=== PATIENT | female | born 1995 | race Caucasian/White ===

== ENCOUNTER 2024-03-10 21:04 | Emergency (ER) | payer BC, SELFPAY ==
[2024-03-10 21:09] VITALS: BP 121/93
[2024-03-10 21:32] LABS: % Basophils 0.6 % (0-2); % Immature Granulocytes 0.4 % (0-0.5); % Lymphocytes 36.4 % (20.5-51.1); % Monocytes 7.1 % (1.7-9.3); % Neutrophils 54.5 % (42.2-75.2); Absolute Basophils 0.1 10^3/uL (0-0.2); Absolute Eosinophils 0.1 10^3/uL (0-0.7); Absolute Monocytes 0.6 10^3/uL (0.1-0.6); Absolute Neutrophils 4.4 10^3/uL (1.4-6.5); Hematocrit 41.3 % (37.0-47.0); Hemoglobin 14.2 g/dL (12.0-16.0); Mean Corp Hgb Conc. 34.4 g/dL (33.0-37.0); Mean Corpuscular Hgb 30.4 pg (27.0-31.0); Mean Corpuscular Volume 88.4 fL (81.0-99.0); Nucleated Red Blood Cells % 0 %; Platelet Count 379 10^3/uL (130-400); Red Blood Cell Count 4.67 10^6/uL (4.20-5.40); White Blood Cell Count 8.2 10^3/uL (4.8-10.8)
[2024-03-10 21:47] LABS: HCG, Serum Qualitative Screen Negative
[2024-03-10 21:50] LABS: ALT (SGPT) 19 U/L (0-35); AST (SGOT) 23 U/L (14-36); Albumin 5.1 g/dl (3.5-5.0); Alkaline Phosphatase 68 U/L (38-126); Blood Urea Nitrogen 17 mg/dl (7-17); Calcium 10.9 mg/dl (8.4-10.2); Carbon Dioxide 26 mmol/L (22-30); Chloride 99 mmol/L (98-107); Glucose 97 mg/dl (70-99); Potassium 4.4 mmol/L (3.5-5.1); Sodium 137 mmol/L (135-145); Total Bilirubin 0.6 mg/dl (0.2-1.3); Total Protein 8.2 g/dl (6.3-8.2); eGFR > 60.00
--- NOTE | 2024-03-10 23:42 | ED.GENMED ---
History of Present Illness
General
Chief Complaint: Fainting/Passed Out
Time Seen by Provider: 03/10/24 23:42
Travel History
Have you had any contact with someone who has COVID-19?: No
Do you have any symptoms of coronavirus? Fever > 100 degrees, chills, cough, shortness of breath, sore throat, loss of taste or smell, muscle aches, or headache?: No
History of Present Illness
History of Present Illness:
HPI: About a week ago while walking, the patient passed out. 2 days ago, the patient passed out again while at work and then placed herself on the monitor and states that the rates would go as high as 130s when she would get up and move around.
She describes somewhat of a 'brain fog'. She has never had a cardiac evaluation. Of note, her mother had thyroid disease around the same age.
EXAM:
GENERAL: Well appearing in no distress
HEENT: Moist oral mucosa
CARDIOVASCULAR: No murmurs, normal heart rate, regular rhythm, No chest wall tenderness
PULMONARY: No respiratory distress, breath sounds are clear and equal
ABDOMEN: Soft with no peritoneal signs, no tenderness
NEUROLOGIC: Excellent strength all extremities, no coordination deficits
PSYCHIATRIC: Appropriate mental status, normal insight and judgement
EXTREMITIES: Nontender, no edema, moves all extremities equally
SKIN: No rash, no lesions
TIME OF INITIAL ENCOUNTER: 12:10 AM
NUMBER AND COMPLEXITY OF PROBLEMS ADDRESSED AT THE ENCOUNTER
� Chronic conditions affecting care: Von Willebrand's, PCOS
� Acute Exacerbation and/or Progression of Chronic Illness: This is an acute problem
� Differential Diagnosis includes: Anxiety, thyroid disease, inappropriate tachycardia, dehydration, electrolyte normality
AMOUNT AND/OR COMPLEXITY OF DATA TO BE REVIEWED AND ANALYZED
� I performed an independent evaluation of and my interpretation is:
EKG: Sinus 61, normal axis, normal intervals, no old to compare
CT:
X-rays:
Laboratory Studies: CBC is unremarkable, mild hypercalcemia noted but otherwise chemistries unremarkable, hCG is negative, TSH normal
Other:
� Review of other/old records: Records show the patient had a sigmoidoscopy in 2016
� Clinical information was obtained by an independent historian: I spoke to mother at bedside
� Prescriptions/Medications Considered but not given:
� Further testing considered but not performed:
RISK OF COMPLICATIONS AND/OR MORBIDITY OR MORTALITY OF PATIENT MANAGEMENT
� Social determinants of health affecting care: Lives at home
� Discussion with other providers:
� Escalation of care including admission/observation vs risk of discharge considered: The patient is currently very well-appearing with an unremarkable ED workup. I did inform her of the slight hypercalcemia. EKG is
unremarkable. She is to follow-up with cardiology. Mother prefers [facility].
Phy Exam
Physical Exam
Physical Exam:
See HPI
Course
Orders/Labs/Results
Orders:
Orders
03/10/24 21:15
EKG [Electrocardiogram (*1)] Urgent
Reason for Study: Syncope
EKG- Treatment ONCE
Test Result ONCE
03/10/24 21:23
Complete Blood Count/With Diff Urgent
Comprehensive Metabolic Panel Urgent
HCG, Serum Qualitative Screen Urgent
TSH Reflex To Free T4 Urgent
Comment: ADD ON
03/11/24 00:14
Add On- LAB Urgent
Tests Added?: tsh reflex fT4
Abnormal Lab Results
03/10/24
21:23
Calcium 10.9 H mg/dl
(8.4-10.2)
Albumin 5.1 H g/dl
(3.5-5.0)
03/10/24 21:23
03/10/24 21:23
Vital Signs
Initial and Last Documented VS:
Initial Vital Signs
Temp Pulse Resp BP Pulse Ox
98.1 F 90 16 121/93 100
03/10/24 21:09 03/10/24 21:09 03/10/24 21:09 03/10/24 21:09 03/10/24 21:09
Last Documented Vital Signs
Temp Pulse Resp BP Pulse Ox
98.1 F 89 18 131/96 100
03/10/24 21:09 03/11/24 00:16 03/11/24 00:16 03/11/24 00:16 03/10/24 21:09
*Critical Care Note
Total Time (30-74mins, 75-104mins- exclusive of procedures): Not Applicable
ED Attending Note
-
Portions of this chart may have been created with voice recognition software.� Occasional wrong word or��sound alike� substitutions may have occurred due to the inherent limitations of voice recognition software.
Discharge Plan
Departure
Patient Disposition: Home (Routine Discharge)
Date of Disposition: 03/11/24
Time of Disposition: 00:17
Patient with high blood pressure during this ER visit?: Yes
Discharge Problem:
Syncope
Instructions: Dizziness, Nonvertigo, (DC), Chest Pain [facility] Follow Up
Referrals:
NONE,* [Family Provider] -
Jarad Gann MD [Active] - Follow up in 2-3 days
Stand Alone Forms: Return to Work
Activity Restrictions/Additional Instructions:
The cause of your symptoms is unclear. Thyroid testing is pending. Mildly elevated calcium level is noted with a calcium of 10.9. EKG is unremarkable. I have given you the contact information for [facility].
Interventions
Interventions:
*Risk Screen - Suicide Last Done: 03/11/24 00:24
*General Assessment Last Done: 03/10/24 21:09
*Neglect/Abuse Screening Last Done: 03/11/24 00:24
ED- Fall Risk Assessment Last Done: 03/11/24 00:10
*ED COVID-19 Vaccine History Last Done: 03/10/24 21:09
*Nursing Disposition Last Done: 03/11/24 00:24
ED- Cardiac Assessment Last Done: 03/11/24 00:10
ED- Neurological Assessment Last Done: 03/11/24 00:10
Discharge Date and Time
Discharge Date/Time: 03/11/24 00:26
Print Language: FAROESE
[2024-03-11 00:16] VITALS: BP 131/96
== END 2024-03-11 00:26 | disposition home or self-care (01) ==
LOC: EMR 21:04
PROVIDERS: EMERGENCY PHYSICIAN Emergency Medicine
DX: R55 Syncope and collapse (principal); R03.0 Elevated blood-pressure reading, without diagnosis of hypertension
CPT/HCPCS: 99284; 80053; 84443; 84703; 85025; 93005

== ENCOUNTER 2024-08-16 20:57 | Emergency (ER) | payer BC, SELFPAY ==
[2024-08-16 20:59] VITALS: BP 135/82
[2024-08-16 21:19] VITALS: BMI 26.3
[2024-08-16 21:34] LABS: Urine Albumin Trace (Neg - Trace); Urine Bilirubin Negative (Negative); Urine Character Clear (Clear); Urine Color Yellow; Urine Glucose Negative (Negative); Urine Ketone Negative (Negative); Urine Leukocyte 1+ (Negative); Urine Nitrite Negative (Negative); Urine Occult Blood 3+ (Negative); Urine Specific Gravity 1.025 (<1.030); Urine Urobilinogen Negative (Neg - 1+)
[2024-08-16 21:37] LABS: Hematocrit 36.5 % (37.0-47.0); Hemoglobin 12.4 g/dL (12.0-16.0); Mean Corpuscular Hgb 29.8 pg (27.0-31.0); Mean Corpuscular Volume 87.7 fL (81.0-99.0); Mean Platelet Volume 10.1 fL (7.4-10.4); Platelet Count 337 10^3/uL (130-400); Red Blood Cell Count 4.16 10^6/uL (4.20-5.40); Red Cell Dist. Width 12.9 % (11.5-14.5); White Blood Cell Count 9.7 10^3/uL (4.8-10.8)
[2024-08-16 21:41] LABS: Urine Mucus Many
[2024-08-16 21:45] LABS: Urine Bacteria Many (Negative); Urine Red Blood Cell 0-2 /HPF (0-2)
--- NOTE | 2024-08-16 21:48 | ED.GENMED ---
History of Present Illness
General
Chief Complaint: Abdominal Pain
Source: patient
Time Seen by Provider: 08/16/24 21:31
History of Present Illness
History of Present Illness:
29-year-old female presents emergency room complaining of abdominal pain. Pain located in the suprapubic region. Started fairly abruptly earlier this morning. Pain described as crampy. She does have some mild vaginal bleeding. Her menstrual
periods are irregular but she believes her last menstrual period was early July. She has never been . She denies any previous pelvic or abdominal operations. Patient states that she did have a abnormal Pap smear and is scheduled for
colposcopy tomorrow.
Phy Exam
Physical Exam
Physical Exam:
General: Awake, Alert, Oriented X3. No acute distress.
Vitals: unremarkable
Head: Atraumatic
Eyes: Pupils equal, EOMI
Throat: Airway intact, no exudates
Neck: Trachea midline
Lungs: Clear and equal b/l
Heart: Regular rate, no murmurs
Abd: Soft, Nontender, No pulsatile mass
Back: No CVA tenderness to percussion
Neuro: Nonfocal
Skin: Warm, dry, no rash
Extremities: pulses equal b/l, no edema
Course
Orders/Labs/Results
Orders:
Orders
08/16/24 21:09
Test Result ONCE
08/16/24 21:17
Type+Screen Urgent
Complete Blood Count/With Diff Urgent
Comprehensive Metabolic Panel Urgent
HCG, Serum Qualitative Screen Urgent
Lipase Urgent
Urinalysis Reflex To Culture Urgent
Date Specimen was Collected: 08/16/24
Time Specimen was Collected: 21:09
Urine Microscopic Reflex Cult Urgent
Urine Culture Urgent
CLEO Source: U
Specimen Description:
Date Specimen was Collected: 08/16/24
Time Specimen was Collected: 21:09
08/16/24 21:44
0.9% Sodium Chloride 1000 ml [Nss] 1,000 ml IV BOLUS
Ketorolac [Toradol] 15 mg IV NOW STA
US Pelvis W Transvag Combined Urgent
Comment:
Reason For Exam: pelvic pain
08/16/24 23:41
ABO2 Urgent
BBK Wristband Number:
Associate notified that ABO2 has been ordered: [id number]
Date: 08/16/24
Time: 21:29
Gaming Investigator ID: [id number]
Abnormal Lab Results
08/16/24
21:17
RBC 4.16 L 10^6/uL
(4.20-5.40)
Hct 36.5 L %
(37.0-47.0)
Absolute Lymphs (auto) 4.6 H 10^3/uL
(1.2-3.4)
Absolute Monos (auto) 0.7 H 10^3/uL
(0.1-0.6)
Neutrophils % 41.4 L %
(42.2-75.2)
Glucose 120 H mg/dl
(70-99)
Ur Occult Blood Reflex 3+ A
(Negative)
Leukocyte Esterase Rfl 1+ A
(Negative)
Urine WBC (Reflex) 11-15 A /HPF
(0-5)
Urine Bacteria (Reflex) Many A
(Negative)
08/16/24 21:17
08/16/24 21:17
Vital Signs
Initial and Last Documented VS:
Initial Vital Signs
Temp Pulse Resp BP Pulse Ox
97.4 F 104 22 135/82 99
08/16/24 20:59 08/16/24 20:59 08/16/24 20:59 08/16/24 20:59 08/16/24 20:59
Last Documented Vital Signs
Temp Pulse Resp BP Pulse Ox
97.4 F 60 18 99/58 99
08/16/24 20:59 08/17/24 00:17 08/16/24 22:12 08/17/24 00:17 08/17/24 00:21
MDM/Problems Addressed
Differential Diagnosis Includes:
Ovarian torsion, ovarian cyst, ruptured ovarian cyst, hemorrhagic ovarian cyst, ectopic
MDM/Problems Addressed:
Patient has a negative test. Her abdominal exam should suprapubic tenderness but no tenderness right lower quadrant. Ultrasound showed good flow to both ovaries and some free fluid in the pelvis. At the time of reevaluation the patient
has no pain whatsoever. Her symptoms are completely improved. Suspect the patient has a ruptured ovarian cyst which does not require any specific treatment other than NSAIDs. Patient stable for discharge home. Follow-up with [facility]. She is
scheduled for colposcopy tomorrow.
*Critical Care Note
Total Time (30-74mins, 75-104mins- exclusive of procedures): Not Applicable
ED Attending Note
-
Portions of this chart may have been created with voice recognition software.� Occasional wrong word or��sound alike� substitutions may have occurred due to the inherent limitations of voice recognition software.
Discharge Plan
Departure
Patient Disposition: Home (Routine Discharge)
Date of Disposition: 08/16/24
Time of Disposition: 23:56
Patient with high blood pressure during this ER visit?: No
Condition: Good
Discharge Problem:
Acute pelvic pain, Ruptured ovarian cyst
Instructions: Ovarian Cyst (DC), Abdominal Pain
Referrals:
Siri Ross PA [Family Provider] -
Activity Restrictions/Additional Instructions:
Follow up with your pharmacy informatics specialist.
Interventions
Interventions:
*Risk Screen - Suicide Last Done: 08/16/24 20:59
*General Assessment Last Done: 08/17/24 00:21
*Neglect/Abuse Screening Last Done: 08/16/24 20:59
ED- Fall Risk Assessment Last Done: 08/16/24 21:23
*ED COVID-19 Vaccine History Last Done: 08/16/24 20:59
*Nursing Disposition Last Done: 08/17/24 00:21
RV-Wpmtcz-Yuqlsgjqnb Assessment Last Done: 08/16/24 21:23
Discharge Date and Time
Discharge Date/Time: 08/17/24 00:25
Print Language: KOREAN
[2024-08-16 21:50] LABS: % Basophils 0.6 % (0-2); % Immature Granulocytes 0.3 % (0-0.5); % Lymphocytes 47.6 % (20.5-51.1); % Monocytes 7.1 % (1.7-9.3); % Neutrophils 41.4 % (42.2-75.2); Absolute Basophils 0.1 10^3/uL (0-0.2); Absolute Eosinophils 0.3 10^3/uL (0-0.7); Absolute Lymphocytes 4.6 10^3/uL (1.2-3.4); Absolute Monocytes 0.7 10^3/uL (0.1-0.6); Nucleated Red Blood Cells % 0 %
[2024-08-16 21:52] LABS: HCG, Serum Qualitative Screen Negative
[2024-08-16 21:55] LABS: ALT (SGPT) 17 U/L (0-35); AST (SGOT) 19 U/L (14-36); Albumin 4.3 g/dl (3.5-5.0); Alkaline Phosphatase 55 U/L (38-126); Blood Urea Nitrogen 16 mg/dl (7-17); Calcium 9.4 mg/dl (8.4-10.2); Carbon Dioxide 26 mmol/L (22-30); Chloride 103 mmol/L (98-107); Estimated Creatinine Clearance 95 ml/min; Glucose 120 mg/dl (70-99); Lipase 143 U/L (23-300); Potassium 3.6 mmol/L (3.5-5.1); Sodium 139 mmol/L (135-145); Total Bilirubin 0.2 mg/dl (0.2-1.3); Total Protein 6.7 g/dl (6.3-8.2); eGFR > 60.00
[2024-08-16] MEDS: NSS 1000 IV (22:10)
[2024-08-16] MEDS: TORADOL 15 MG IV (22:10)
[2024-08-16 22:12] VITALS: BP 101/66
[2024-08-16 23:19] VITALS: BP 102/64
[2024-08-17 00:17] VITALS: BP 99/58
== END 2024-08-17 00:25 | disposition home or self-care (01) ==
LOC: EMR 20:57
PROVIDERS: EMERGENCY PHYSICIAN Emergency Medicine; FAMILY PHYSICIAN Physician Assistant Medical
DX: N83.291 Other ovarian cyst, right side (principal); R10.2 Pelvic and perineal pain
CPT/HCPCS: 99284; 96374; 96361; 76830; 76856; 80053; 81003; 81015; 83690; 84703; 85025; 86850; 86900; 86901; 87086

== ENCOUNTER → 2024-09-06 06:23 | Day surgery (SDC) | payer BC, SELFPAY | LOC: GI 06:23 | PROVIDERS: ATTENDING PHYSICIAN Internal Medicine | DX: Z12.11 Encounter for screening for malignant neoplasm of colon (principal); R10.30 Lower abdominal pain, unspecified; R63.4 Abnormal weight loss; K62.89 Other specified diseases of anus and rectum; R12 Heartburn; K44.9 Diaphragmatic hernia without obstruction or gangrene; K29.50 Unspecified chronic gastritis without bleeding; Z86.0100 Personal history of colon polyps, unspecified | CPT/HCPCS: 43239; G0105; 88305; 88342 ==

== ENCOUNTER 2024-12-21 13:59 | Emergency (ER) | payer BC, SELFPAY ==
[2024-12-21 14:09] VITALS: BP 123/82
--- NOTE | 2024-12-21 14:13 | ED.GENMED ---
ED Provider Triage
<Mitch Corey PA-C - Last Filed: 12/21/24 14:15>
-
Patient seen by provider in Triage?: Seen in Triage
Attestation: A medical screening examination has been initiated by a qualified medical provider. Based on the assessment performed at this time, it has been determined that an emergent medical condition may exist and the patient has been informed
that further medical evaluation and possible additional diagnostic testing may be needed.
HPI: 29-year-old female presenting to the ER for evaluation of swollen lymph nodes within her neck and left axillary area. Seen by primary care provider on Thursday was tested for COVID, flu, RSV and mono with these test coming back negative. No
fevers but patient does endorse chills. No known sick contacts. No other concerns. Labs and strep testing ordered.
GENERAL: Alert , in no apparent distress
EYE: No visual abnormalities.
NECK: Trachea midline
ENT: No visible abnormalities.
LUNGS: No acute respiratory distress
NEUROLOGICAL: Alert and oriented
SKIN: Skin intact. No visible changes.
MUSCULOSKELETAL: Moving extremities normally
PSYCH: Normal and appropriate interaction.
This is a medical evaluation conducted in person to initiate diagnostic evaluation and provide initial therapeutics. Please see further documentation by the treating clinician.
History of Present Illness
<Mitch Corey PA-C - Last Filed: 12/21/24 14:15>
General
Chief Complaint: Fatigue
Time Seen by Provider: 12/21/24 20:17
<YANCI Benton - Last Filed: 12/21/24 21:03>
General
Source: patient
Exam Limitations: none
History of Present Illness
History of Present Illness:
This is a 29 year old female that comes in with c/o neck and head pain. States that over a month ago she started with what she thought was an ear infection. States that she went to the PCP and was told that it was TMJ. States that she then felt this
lump in the back of her head and she was told that it was a lymph node. States that she was put on Augmentin as she was told that she may have an inner ear infection. States that she was also given Steroid taper. States that this was last Thursday
or Thursday. States that it has been a week and she has no relief. States that she was tested for the flu and it was negative. State that she called the PCP yesterday. States that now she feels that her neck is swollen and stiff. States that she
has pressure in her head and that there is a rubber band around her head. States that the pain goes up the back of her neck into her head and into the temporal area and across her forehead. State that she is very fatigued and dizzy and has brain
fog. States that she is cold and hot an at night wakes up in a sweat. States that she gets SOB with activity. States that she has had abd discomfort and nausea and alternated with diarrhea and constipation. Denies any fever, chills, chest pain,
vomiting, urinary burning.
Past History
<YANCI Benton - Last Filed: 12/21/24 21:03>
Past History
ED Past Medical History: Fibromyalgia (Questionable) and Other (PCOS, Von Willenbrands disease. POTS questionable, Hiatal hernia)
ED Past Surgical History: Tonsilectomy
Social History
Tobacco: Non-smoker
Alcohol: Occasional
Personal: Single
Living: with family
Employment: Employed
Review of Systems
<YANCI Benton - Last Filed: 12/21/24 21:03>
Review of Systems
All Other Systems: ROS reviewed and negative except as documented in HPI and ROS
Constitutional: Reports fatigue and night sweats; Denies fever or chills
EENT: Reports no symptoms
Respiratory: Reports trouble breathing (with activity); Denies cough
Cardiac: Reports no symptoms; Denies chest pain
ABD/GI: Reports abdominal pain, nausea and diarrhea (alternated with constipation); Denies vomiting
: Reports no symptoms; Denies dysuria, frequency or urgency
Musculoskeletal: Reports no symptoms
Skin: Reports no symptoms
Neurological: Reports headache and other (Lightheaded)
Psychiatric: Reports no symptoms
Phy Exam
<YANCI Benton - Last Filed: 12/21/24 21:03>
General Physical Exam
General Presentation: well appearing and no apparent distress
General age: appears stated age
General Skin: warm and dry
General Habitus: normal
General Mental: alert
General Hydration: appears well hydrated
ENT Exam
ENT Exam: TM's normal, pharynx normal and neck supple
Eye Exam
Eye Exam: EOMI
Cardiovascular Exam
Cardiovascular Exam: regular rate/rhythm, no edema, no murmur and normal peripheral pulses
Pulmonary Exam
Pulmonary Exam: lungs clear, no respiratory distress, no rales, chest non tender, no crackles, no rhonchi, no wheezing and no cough
Gastrointestinal Exam
Gastrointestinal Exam: normal bowel sounds, non tender, soft, no organomegaly, no pulsatile mass and non distended
Musculoskeletal Exam
Musculoskeletal Exam: full ROM and no edema
Skin Exam
Skin Exam: normal color, warm/dry, no rash and no petechia
Psychiatric Exam
Psychiatric Exam: normal mood/affect
Course
<Mitch Corey PA-C - Last Filed: 12/21/24 14:15>
Orders/Labs/Results
Orders:
Orders
12/21/24 14:14
Test Result ONCE
12/21/24 14:18
C-Reactive Protein Urgent
Comment: ADD ON
Complete Blood Count/With Diff Urgent
Comprehensive Metabolic Panel Urgent
Erythrocyte Sed Rate Urgent
Comment: ADD ON
HCG, Serum Qualitative Screen Urgent
Lyme Progressive Urgent
Comment: ADD ON
Monotest Urgent
TSH Reflex To Free T4 Urgent
Comment: ADD ON
12/21/24 20:29
0.9% Sodium Chloride 1000 ml [Nss] 1,000 ml IV BOLUS
Acetaminophen [Tylenol] 1,000 mg PO NOW STA
12/21/24 20:38
Add On- LAB Urgent
Tests Added?: Sed rate, CRP
12/21/24 20:46
Add On- LAB Urgent
Tests Added?: Epstine guallpa antigen antibody, TSH with reflex free T4
12/21/24 20:51
Add On- LAB Urgent
Tests Added?: Lyme progressive
Abnormal Lab Results
12/21/24
14:18
Absolute Monos (auto) 0.8 H 10^3/uL
(0.1-0.6)
Glucose 112 H mg/dl
(70-99)
Total Bilirubin < 0.1 L mg/dl
(0.2-1.3)
12/21/24 14:18
12/21/24 14:18
Vital Signs
Initial and Last Documented VS:
Initial Vital Signs
Temp Pulse Resp BP Pulse Ox
98.2 F 84 16 123/82 100
12/21/24 14:09 12/21/24 14:09 12/21/24 14:09 12/21/24 14:09 12/21/24 14:09
Last Documented Vital Signs
Temp Pulse Resp BP Pulse Ox
98.7 F 69 18 122/68 99
12/21/24 19:09 12/21/24 21:32 12/21/24 21:32 12/21/24 21:32 12/21/24 21:32
<YANCI Benton - Last Filed: 12/21/24 21:03>
Orders/Labs/Results
Orders:
Orders
12/21/24 14:14
Test Result ONCE
12/21/24 14:18
C-Reactive Protein Urgent
Comment: ADD ON
Complete Blood Count/With Diff Urgent
Comprehensive Metabolic Panel Urgent
Erythrocyte Sed Rate Urgent
Comment: ADD ON
HCG, Serum Qualitative Screen Urgent
Lyme Progressive Urgent
Comment: ADD ON
Monotest Urgent
TSH Reflex To Free T4 Urgent
Comment: ADD ON
12/21/24 20:29
0.9% Sodium Chloride 1000 ml [Nss] 1,000 ml IV BOLUS
Acetaminophen [Tylenol] 1,000 mg PO NOW STA
12/21/24 20:38
Add On- LAB Urgent
Tests Added?: Sed rate, CRP
12/21/24 20:46
Add On- LAB Urgent
Tests Added?: Epstine guallpa antigen antibody, TSH with reflex free T4
12/21/24 20:51
Add On- LAB Urgent
Tests Added?: Lyme progressive
Abnormal Lab Results
12/21/24
14:18
Absolute Monos (auto) 0.8 H 10^3/uL
(0.1-0.6)
Glucose 112 H mg/dl
(70-99)
Total Bilirubin < 0.1 L mg/dl
(0.2-1.3)
12/21/24 14:18
12/21/24 14:18
Hyperglycemia, Total franoc Low, HCG negative, [place] negative.
Vital Signs
Initial and Last Documented VS:
Initial Vital Signs
Temp Pulse Resp BP Pulse Ox
98.2 F 84 16 123/82 100
12/21/24 14:09 12/21/24 14:09 12/21/24 14:09 12/21/24 14:09 12/21/24 14:09
Last Documented Vital Signs
Temp Pulse Resp BP Pulse Ox
98.7 F 69 18 122/68 99
12/21/24 19:09 12/21/24 21:32 12/21/24 21:32 12/21/24 21:32 12/21/24 21:32
<Eric Porter, DO - Last Filed: 12/21/24 23:33>
Orders/Labs/Results
Orders:
Orders
12/21/24 14:14
Test Result ONCE
12/21/24 14:18
C-Reactive Protein Urgent
Comment: ADD ON
Complete Blood Count/With Diff Urgent
Comprehensive Metabolic Panel Urgent
Erythrocyte Sed Rate Urgent
Comment: ADD ON
HCG, Serum Qualitative Screen Urgent
Lyme Progressive Urgent
Comment: ADD ON
Monotest Urgent
TSH Reflex To Free T4 Urgent
Comment: ADD ON
12/21/24 20:29
0.9% Sodium Chloride 1000 ml [Nss] 1,000 ml IV BOLUS
Acetaminophen [Tylenol] 1,000 mg PO NOW STA
12/21/24 20:38
Add On- LAB Urgent
Tests Added?: Sed rate, CRP
12/21/24 20:46
Add On- LAB Urgent
Tests Added?: Epstine guallpa antigen antibody, TSH with reflex free T4
12/21/24 20:51
Add On- LAB Urgent
Tests Added?: Lyme progressive
Abnormal Lab Results
12/21/24
14:18
Absolute Monos (auto) 0.8 H 10^3/uL
(0.1-0.6)
Glucose 112 H mg/dl
(70-99)
Total Bilirubin < 0.1 L mg/dl
(0.2-1.3)
12/21/24 14:18
12/21/24 14:18
Vital Signs
Initial and Last Documented VS:
Initial Vital Signs
Temp Pulse Resp BP Pulse Ox
98.2 F 84 16 123/82 100
12/21/24 14:09 12/21/24 14:09 12/21/24 14:09 12/21/24 14:09 12/21/24 14:09
Last Documented Vital Signs
Temp Pulse Resp BP Pulse Ox
98.7 F 69 18 122/68 99
12/21/24 19:09 12/21/24 21:32 12/21/24 21:32 12/21/24 21:32 12/21/24 21:32
<YANCI Benton - Last Filed: 12/21/24 21:03>
MDM/Problems Addressed
Differential Diagnosis Includes:
Fibromyalgia, Complicated migraines.
MDM/Problems Addressed:
This is a 29 year old female that comes in with c/o a headache that comes up the back of her neck into her head around to her Temporal area and across the forehead. States that this all started about a month ago. Patient has been treated with
Augmentin and steroid taper.
Will check labs and get CT of head.
Patient was seen by Dr. Porter. Will add on further blood work and discharge patient.
Chronic conditions affecting care:
Fibromyalgia
Acute Exacerbation and/or Progression of Chronic Illness:
Fibromyalgia
<YANCI Benton - Last Filed: 12/21/24 21:03>
*Pulse Oximetry
Patient hypoxic: no
*EKG
Interpreted by ED Provider?: NA
Rate: EKG- N/A
*Senior Production Manager Interpretation
Rate: Senior Production Manager- N/A
*Critical Care Note
Total Time (30-74mins, 75-104mins- exclusive of procedures): Not Applicable
ED Attending Note
<Mitch Corey PA-C - Last Filed: 12/21/24 14:15>
-
Portions of this chart may have been created with voice recognition software.� Occasional wrong word or��sound alike� substitutions may have occurred due to the inherent limitations of voice recognition software.
<Eric Porter DO - Last Filed: 12/21/24 23:33>
ED Attending Note
Patient seen and examined by attending physician: Yes
I performed the substantive portion of visit, reviewed & personally made and approve the management plan that is documented in note by myself or JADIEL.: Yes
ED Attending Note:
30-year-old female with a variety of complaints. Has had sort of a 'brain fog', swollen lymph nodes, fatigue. Has tested negative for mono. Has appoint with hematology [facility] because she may need a minor surgery and she has a history of von
Willebrand's disease. Symptoms have been going on for more than a month. Exam: Question very small anterior cervical chain lymph nodes palpable. Certainly no significant lymphadenopathy. No axillary lymphadenopathy palpated. No meningismus. No
focal motor deficits. Assessment plan: Question whether this was just some sort of viral etiology. Could question Lawanda-Guallpa virus. Will check Lyme, Lawanda-Guallpa, thyroid and discharge for outpatient follow-up
Discharge Plan
Departure
Patient Disposition: Home (Routine Discharge)
Date of Disposition: 12/21/24
Time of Disposition: 20:48
Patient with high blood pressure during this ER visit?: Yes
Condition: Good
Covid-19: Not Applicable
Discharge Problem:
Headache, Fatigue
Instructions: Fatigue (DC), Headaches in adults, BLOOD PRESSURE
Referrals:
Siri Ross PA [Family Provider] - Follow up in 2-3 days
Activity Restrictions/Additional Instructions:
As discussed, your blood work shows that your blood sugar is slightly elevated. However, steroid use may be the cause of this. Please increase your water intake to 8-8oz glasses daily. Follow up with scheduled appointments. Use Tylenol as needed for
headache pain. IF YOU HAVE ANY OTHER CONCERNS PLEASE RETURN TO THE EMERGENCY ROOM.
Interventions
Interventions:
*Risk Screen - Suicide Last Done: 12/21/24 14:09
*General Assessment Last Done: 12/21/24 14:09
*Neglect/Abuse Screening Last Done: 12/21/24 14:09
ED- Fall Risk Assessment Last Done: 12/21/24 21:30
*ED COVID-19 Vaccine History Last Done: 12/21/24 14:09
*Nursing Disposition Last Done: 12/21/24 21:31
Discharge Date and Time
Discharge Date/Time: 12/21/24 21:32
Print Language: HUNGARIAN
[2024-12-21 14:28] LABS: % Basophils 0.4 % (0-2); % Eosinophils 1.1 % (0-6); % Immature Granulocytes 0.2 % (0-0.5); % Lymphocytes 35.3 % (20.5-51.1); % Monocytes 8.4 % (1.7-9.3); % Neutrophils 54.6 % (42.2-75.2); Absolute Eosinophils 0.1 10^3/uL (0-0.7); Absolute Lymphocytes 3.2 10^3/uL (1.2-3.4); Absolute Monocytes 0.8 10^3/uL (0.1-0.6); Absolute Neutrophils 4.9 10^3/uL (1.4-6.5); Hematocrit 37.9 % (37.0-47.0); Hemoglobin 12.6 g/dL (12.0-16.0); Mean Corp Hgb Conc. 33.2 g/dL (33.0-37.0); Mean Corpuscular Hgb 29.8 pg (27.0-31.0); Mean Corpuscular Volume 89.6 fL (81.0-99.0); Mean Platelet Volume 9.8 fL (7.4-10.4); Nucleated Red Blood Cells % 0 %; Platelet Count 343 10^3/uL (130-400); Red Blood Cell Count 4.23 10^6/uL (4.20-5.40); Red Cell Dist. Width 13.3 % (11.5-14.5)
[2024-12-21 14:43] LABS: HCG, Serum Qualitative Screen Negative
[2024-12-21 14:48] LABS: ALT (SGPT) 17 U/L (0-35); AST (SGOT) 15 U/L (14-36); Albumin 4.2 g/dl (3.5-5.0); Alkaline Phosphatase 47 U/L (38-126); Blood Urea Nitrogen 12 mg/dl (7-17); Calcium 8.9 mg/dl (8.4-10.2); Carbon Dioxide 29 mmol/L (22-30); Chloride 100 mmol/L (98-107); Glucose 112 mg/dl (70-99); Potassium 3.6 mmol/L (3.5-5.1); Sodium 138 mmol/L (135-145); Total Bilirubin < 0.1 mg/dl (0.2-1.3); Total Protein 6.6 g/dl (6.3-8.2); eGFR > 60.00
[2024-12-21 15:14] LABS: Monotest Negative (Negative)
[2024-12-21 15:55] VITALS: BP 130/80
[2024-12-21 19:09] VITALS: BP 138/77
[2024-12-21 21:03] LABS: Erythrocyte Sed Rate 9 mm/hour (0-20)
[2024-12-21 21:32] VITALS: BP 122/68
[2024-12-21 22:05] LABS: TSH Reflex To Free T4 2.13 uIU/ml (0.47-4.68)
[2024-12-23 16:47] LABS: Lyme Antibody Screen, EIA Negative (Negative)
== END 2024-12-21 21:32 | disposition home or self-care (01) ==
LOC: EMR 13:59
PROVIDERS: Physician Assistant Medical; EMERGENCY PHYSICIAN Emergency Medicine; FAMILY PHYSICIAN Physician Assistant Medical
DX: R51.9 Headache, unspecified (principal); R53.83 Other fatigue; M79.7 Fibromyalgia
CPT/HCPCS: 99283; 80053; 84443; 84703; 85025; 85652; 86140; 86308; 86618

== ENCOUNTER 2025-02-03 12:55 | Emergency (ER) | payer BC, SELFPAY ==
[2025-02-03 13:05] VITALS: BP 129/70
[2025-02-03 13:56] LABS: % Basophils 0.5 % (0-2); % Eosinophils 0.9 % (0-6); % Immature Granulocytes 0.1 % (0-0.5); % Lymphocytes 29.6 % (20.5-51.1); % Monocytes 9.7 % (1.7-9.3); % Neutrophils 59.2 % (42.2-75.2); Absolute Eosinophils 0.1 10^3/uL (0-0.7); Absolute Lymphocytes 2.3 10^3/uL (1.2-3.4); Absolute Monocytes 0.8 10^3/uL (0.1-0.6); Absolute Neutrophils 4.6 10^3/uL (1.4-6.5); Hematocrit 36.3 % (37.0-47.0); Hemoglobin 12.1 g/dL (12.0-16.0); Mean Corp Hgb Conc. 33.3 g/dL (33.0-37.0); Mean Corpuscular Hgb 29.5 pg (27.0-31.0); Mean Corpuscular Volume 88.5 fL (81.0-99.0); Mean Platelet Volume 10.6 fL (7.4-10.4); Nucleated Red Blood Cells % 0 %; Platelet Count 326 10^3/uL (130-400); Red Cell Dist. Width 13.3 % (11.5-14.5); White Blood Cell Count 7.8 10^3/uL (4.8-10.8)
[2025-02-03 14:04] LABS: APTT 30.5 Sec (23.4-35.0); INR 0.89; PT 12.4 Sec (11.4-14.6)
[2025-02-03 14:13] LABS: ALT (SGPT) 19 U/L (0-35); AST (SGOT) 20 U/L (14-36); Albumin 4.7 g/dl (3.5-5.0); Alkaline Phosphatase 59 U/L (38-126); Blood Urea Nitrogen 15 mg/dl (7-17); Calcium 9.6 mg/dl (8.4-10.2); Carbon Dioxide 26 mmol/L (22-30); Chloride 102 mmol/L (98-107); Glucose 92 mg/dl (70-99); Potassium 3.9 mmol/L (3.5-5.1); Sodium 138 mmol/L (135-145); Total Bilirubin 0.5 mg/dl (0.2-1.3); Total Protein 7.1 g/dl (6.3-8.2); eGFR > 60.00
--- NOTE | 2025-02-03 17:05 | ED.GENMED ---
History of Present Illness
General
Chief Complaint: Rectal Bleeding
Source: patient
Exam Limitations: none
Time Seen by Provider: 02/03/25 16:40
Nursing documentation reviewed up to this point in time: agreed with
History of Present Illness
History of Present Illness:
29-year-old female with history of von Willebrand's disease presents for rectal bleeding. She states she typically has 3 or 4 soft bowel movements a day, she did have 3 soft bowel movements today as usual and then at 10 AM she said she had a bowel
movement that was 'just blood with clots.' She has had no rectal bleeding since. She does have a history of hemorrhoids. She also just got her period.
She denies abdominal pain, fever, N/V
Past History
Past History
ED Past Medical History: Fibromyalgia (Questionable) and Other (PCOS, Von Willenbrands disease. POTS questionable, Hiatal hernia)
ED Past Surgical History: Tonsilectomy
Social History
Tobacco: Non-smoker
Alcohol: Occasional
Personal: Single
Living: with family
Employment: Employed
Review of Systems
Review of Systems
Allergies reviewed?: Yes
All Other Systems: ROS reviewed and negative except as documented in HPI and ROS
Constitutional: Denies fever or fatigue
Respiratory: Denies trouble breathing
Cardiac: Denies chest pain, palpitations or syncope
ABD/GI: Reports bloody stools (x 1 this a.m.); Denies abdominal pain, nausea, vomiting, diarrhea, constipated or anorexia
: Denies dysuria, frequency or difficulty voiding
Musculoskeletal: Reports no symptoms
Skin: Reports no symptoms
Neurological: Reports no symptoms
Phy Exam
Physical Exam
Physical Exam:
GENERAL: No acute distress. A&Ox3.
CONSTITUTIONAL: Afebrile.
EYES: clear, conjunctivae normal
ENMT: moist mucus membranes, Pharynx nl
RESPIRATORY: Regular respirations, nonlabored, lungs clear.
CARDIOVASCULAR: Regular rate and rhythm, no murmurs, no rubs.
GI: Soft, mild RLQ tenderness that started just during this exam. normal BS
Rectal: No stool in rectal vault, gloved finger with pinkish mucus hematest positive. No external hemorrhoids, no significant pain with exam, no palpable masses
MUSCULOSKELETAL: Moves with ease. Well perfused.
SKIN: Warm, dry, pink
PSYCH: Normal mood and affect. Well kept, interactive and appropriate
NEUROLOGIC: Awake, alert and oriented. No focal neurological deficits
Course
Orders/Labs/Results
Orders:
Orders
02/03/25 13:16
Type+Screen Urgent
Complete Blood Count/With Diff Urgent
Comprehensive Metabolic Panel Urgent
PTT Urgent
Prothrombin Time Urgent
Abnormal Lab Results
02/03/25
13:16
RBC 4.10 L 10^6/uL
(4.20-5.40)
Hct 36.3 L %
(37.0-47.0)
MPV 10.6 H fL
(7.4-10.4)
Absolute Monos (auto) 0.8 H 10^3/uL
(0.1-0.6)
Monocytes % 9.7 H %
(1.7-9.3)
02/03/25 13:16
02/03/25 13:16
Vital Signs
Initial and Last Documented VS:
Initial Vital Signs
Temp Pulse Resp BP Pulse Ox
98.7 F 82 16 129/70 100
02/03/25 13:05 02/03/25 13:05 02/03/25 13:05 02/03/25 13:05 02/03/25 13:05
Last Documented Vital Signs
Temp Pulse Resp BP Pulse Ox
98.7 F 79 20 125/84 96
02/03/25 13:05 02/03/25 17:19 02/03/25 17:19 02/03/25 17:19 02/03/25 17:19
MDM/Problems Addressed
MDM/Problems Addressed:
29-year-old female with history of von Willebrand's disease presents for rectal bleeding. She states she typically has 3 or 4 soft bowel movements a day, she did have 3 soft bowel movements today as usual and then at 10 AM she said she had a bowel
movement that was 'just blood with clots.' She has had no rectal bleeding since. She does have a history of hemorrhoids. She also just got her period.
She denies abdominal pain, fever, N/V
Afebrile, NAD
CBC, CMP normal
Rectal exam: No stool in rectal vault, mild pinkish color on gloved finger hematest positive, no palpable masses, no significant pain, no external hemorrhoids noted.
Patient reassured, she knows to come back if her bleeding persists, she she had no abdominal pain until this exam, she has some mild right lower quadrant abdominal pain with deep palpation, she states this just started, she is comfortable observing
and if it is worse she will come back.
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
*Critical Care Note
Total Time (30-74mins, 75-104mins- exclusive of procedures): Not Applicable
ED Attending Note
-
Portions of this chart may have been created with voice recognition software.� Occasional wrong word or��sound alike� substitutions may have occurred due to the inherent limitations of voice recognition software.
Discharge Plan
Departure
Patient Disposition: Home (Routine Discharge)
Date of Disposition: 02/03/25
Time of Disposition: 17:11
Patient with high blood pressure during this ER visit?: No
Condition: Good
Discharge Problem:
Bright red rectal bleeding
Instructions: Hemorrhoids (DC), Bloody Stools, Adult ED, Abdominal Pain
Referrals:
NONE,* [Active] -
Activity Restrictions/Additional Instructions:
As we discussed, I can neither seen nor feel any hemorrhoids.
Since you only had the one episode and your blood work is normal, simply observe over the next couple of days and return if bleeding becomes worse or you feel worse in any way.
Since you just now noted your right side abdominal pain, if it gets worse, you develop nausea/vomiting, fever or worsening pain return here for reevaluation
Interventions
Interventions:
*Risk Screen - Suicide Last Done: 02/03/25 13:05
*General Assessment Last Done: 02/03/25 17:15
*Neglect/Abuse Screening Last Done: 02/03/25 13:05
*ED- Fall Risk Assessment Last Done: 02/03/25 17:15
*ED COVID-19 Vaccine History Last Done: 02/03/25 17:15
*Nursing Disposition Last Done: 02/03/25 17:29
[id number] Assessment Last Done: 02/03/25 16:30
ED- Cardiac Assessment Last Done: 02/03/25 16:30
ED- Pulmonary Assessment Last Done: 02/03/25 16:30
Discharge Date and Time
Discharge Date/Time: 02/03/25 17:15
Print Language: MONGOLIAN
[2025-02-03 17:19] VITALS: BP 125/84
== END 2025-02-03 17:15 | disposition home or self-care (01) ==
LOC: EMR 12:55
PROVIDERS: Student in an Organized Health Care Education/Training Program; EMERGENCY PHYSICIAN Emergency Medicine
DX: K62.5 Hemorrhage of anus and rectum (principal); D68.00 Von Willebrand disease, unspecified
CPT/HCPCS: 99283; 80053; 85025; 85610; 85730; 86850; 86900; 86901

== ENCOUNTER 2025-02-28 22:48 | Emergency (ER) | payer BC, SELFPAY ==
[2025-02-28 22:49] VITALS: BP 109/84
[2025-02-28 23:54] LABS: % Basophils 0.6 % (0-2); % Eosinophils 2.6 % (0-6); % Immature Granulocytes 0.1 % (0-0.5); % Lymphocytes 33.5 % (20.5-51.1); % Monocytes 10.3 % (1.7-9.3); % Neutrophils 52.9 % (42.2-75.2); Absolute Basophils 0.1 10^3/uL (0-0.2); Absolute Eosinophils 0.2 10^3/uL (0-0.7); Absolute Lymphocytes 2.7 10^3/uL (1.2-3.4); Absolute Monocytes 0.8 10^3/uL (0.1-0.6); Absolute Neutrophils 4.3 10^3/uL (1.4-6.5); Hematocrit 36.4 % (37.0-47.0); Hemoglobin 12.3 g/dL (12.0-16.0); Mean Corp Hgb Conc. 33.8 g/dL (33.0-37.0); Mean Corpuscular Hgb 29.4 pg (27.0-31.0); Mean Corpuscular Volume 86.9 fL (81.0-99.0); Mean Platelet Volume 10.3 fL (7.4-10.4); Nucleated Red Blood Cells % 0 %; Platelet Count 283 10^3/uL (130-400); Red Blood Cell Count 4.19 10^6/uL (4.20-5.40); Red Cell Dist. Width 13.2 % (11.5-14.5); White Blood Cell Count 8.2 10^3/uL (4.8-10.8)
[2025-03-01 00:06] LABS: ALT (SGPT) 17 U/L (0-35); AST (SGOT) 18 U/L (14-36); Albumin 3.9 g/dl (3.5-5.0); Alkaline Phosphatase 53 U/L (38-126); Blood Urea Nitrogen 16 mg/dl (7-17); Calcium 9.3 mg/dl (8.4-10.2); Carbon Dioxide 25 mmol/L (22-30); Chloride 106 mmol/L (98-107); Glucose 146 mg/dl (70-99); Lipase 194 U/L (23-300); Potassium 4.3 mmol/L (3.5-5.1); Sodium 137 mmol/L (135-145); Total Bilirubin 0.3 mg/dl (0.2-1.3); Total Protein 6.4 g/dl (6.3-8.2); eGFR > 60.00
--- NOTE | 2025-03-01 00:06 | ED.GENMED ---
History of Present Illness
General
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
Source: patient and significant other
Exam Limitations: none
Time Seen by Provider: 02/28/25 23:49
Nursing documentation reviewed up to this point in time: agreed with
History of Present Illness
History of Present Illness:
Pleasant 29-year-old female presents to the emergency department for sharp pelvic pain radiating to her back. She states that the pain came during intercourse. Patient states that this pain is similar to a ruptured ovarian cyst that she
experienced years ago. Patient has a history of PCOS and von Willebrand's disease. Denies fever, chills, nausea or vomiting.
Past History
Past History
ED Past Medical History: Fibromyalgia (Questionable) and Other (PCOS, Von Willenbrands disease. POTS questionable, Hiatal hernia)
ED Past Surgical History: Tonsilectomy
Social History
Tobacco: Non-smoker
Alcohol: Occasional
Personal: Single
Living: with family
Employment: Employed
Review of Systems
Review of Systems
Allergies reviewed?: Yes
All Other Systems: ROS reviewed and negative except as documented in HPI and ROS
Constitutional: Denies fever or fatigue
EENT: Reports no symptoms
Respiratory: Reports no symptoms
Cardiac: Reports no symptoms
ABD/GI: Reports abdominal pain; Denies vomiting or diarrhea
: Denies frequency, incontinence, difficulty voiding, urgency or bleeding
Musculoskeletal: Reports no symptoms
Skin: Reports no symptoms
Neurological: Reports no symptoms
Endocrine: Reports no symptoms
Hematologic/Lymphatic: Reports no symptoms
Psychiatric: Reports anxiety
Phy Exam
General Physical Exam
General Presentation: well appearing and mild distress (Patient states that the pain waxes and wanes. At time of exam, pain was minimal)
General age: appears stated age
General Skin: warm and dry
General Habitus: normal
General Mental: alert
General Hydration: appears well hydrated
ENT Exam
ENT Exam: EOMI, pharynx normal, neck supple and normocephalic
Eye Exam
Eye Exam: PERRL, cornea clear and conjunctiva normal
Cardiovascular Exam
Cardiovascular Exam: regular rate/rhythm, no edema, no murmur and normal peripheral pulses
Pulmonary Exam
Pulmonary Exam: lungs clear and no respiratory distress
Gastrointestinal Exam
Gastrointestinal Exam: normal bowel sounds, non tender, soft, no organomegaly, no pulsatile mass and non distended
Neurological Exam
Neurological Exam: alert, oriented x3, no motor deficits and speech normal
Musculoskeletal Exam
Musculoskeletal Exam: full ROM
Skin Exam
Skin Exam: normal color and warm/dry
Psychiatric Exam
Psychiatric Exam: normal mood/affect
Course
Orders/Labs/Results
Orders:
Orders
02/28/25 23:35
Test Result ONCE
02/28/25 23:40
Complete Blood Count/With Diff Urgent
Comprehensive Metabolic Panel Urgent
HCG, Serum Qualitative Screen Urgent
Lipase Urgent
03/01/25 00:00
US Pelvis Only (non-obstetric) Urgent
Reason For Exam: pelvic pain
03/01/25 00:05
0.9% Sodium Chloride 1000 ml [Nss] 1,000 ml IV BOLUS
03/01/25 00:06
Morphine Sulfate 4 mg IV NOW STA
Ondansetron Injectable [Zofran] 4 mg IV NOW STA
03/01/25 02:52
Oxycodone/Acetaminophen [Percocet 5/325] 1 tablet PO NOW STA
Abnormal Lab Results
02/28/25
23:40
RBC 4.19 L 10^6/uL
(4.20-5.40)
Hct 36.4 L %
(37.0-47.0)
Absolute Monos (auto) 0.8 H 10^3/uL
(0.1-0.6)
Monocytes % 10.3 H %
(1.7-9.3)
Glucose 146 H mg/dl
(70-99)
02/28/25 23:40
02/28/25 23:40
Vital Signs
Initial and Last Documented VS:
Initial Vital Signs
Temp Pulse Resp BP Pulse Ox
98.0 F 101 18 109/84 99
02/28/25 22:49 02/28/25 22:49 02/28/25 22:49 02/28/25 22:49 02/28/25 22:49
Last Documented Vital Signs
Temp Pulse Resp BP Pulse Ox
98.0 F 65 16 109/67 99
02/28/25 22:49 03/01/25 02:25 03/01/25 02:25 03/01/25 02:25 03/01/25 02:25
*Critical Care Note
Total Time (30-74mins, 75-104mins- exclusive of procedures): Not Applicable
Update Note
Update Note:
IMPRESSION:
Limited transabdominal exam
Endometrial complex measures approximately 1 cm in thickness which is within normal limits
No appreciable abnormal endometrial color Doppler vascularity
Probable dominant follicle in the left ovary
Otherwise ovaries appear normal with Doppler blood flow demonstrated bilaterally
Free fluid in the cul-de-sac and right adnexa, nonspecific
May be physiologic
Report faxed directly to ER at 2:38 AM ET
ED Attending Note
-
Portions of this chart may have been created with voice recognition software.� Occasional wrong word or��sound alike� substitutions may have occurred due to the inherent limitations of voice recognition software.
Discharge Plan
Departure
Patient Disposition: Home (Routine Discharge)
Date of Disposition: 03/01/25
Time of Disposition: 02:53
Patient with high blood pressure during this ER visit?: No
Condition: Good
Discharge Problem:
Pelvic pain
Instructions: Pelvic Pain ED
Referrals:
Ekta Will MD [Active] -
Siri Ross PA [Family Provider] -
Activity Restrictions/Additional Instructions:
It was a pleasure meeting you and taking part in your care. We hope for your continued healing and wellness.
Please read discharge instructions in their entirety. However, they are for general education and may not describe your exact diagnosis at discharge. Information on your ER visit and medical conditions were discussed with you along with appropriate
follow up information...
If indicated, please take your medications as instructed and indicated on discharge paperwork.
Please schedule a follow up appointment as directed. Call to schedule an appointment
Please return to the emergency department with ANY change in, persisting, or worsening of symptoms. If any of your symptoms do not improve, or persist, or become more severe within 6-12 hours, please return to the emergency department for further
care.
Please return to the emergency department if you develop a headache, neck pain/stiffness, fever greater than 100.4F, chest pain, shortness of breath, persistent nausea, vomiting, slurred speech, difficulty walking, numbness/tingling, weakness, signs
of infection or any other symptoms that are worrisome to you.
If you have any questions or concerns please do not hesitate to call the Hospital at or E-mail me directly at [email or web address]
Interventions
Interventions:
*Risk Screen - Suicide Last Done: 02/28/25 22:51
*General Assessment Last Done: 02/28/25 22:51
*Neglect/Abuse Screening Last Done: 02/28/25 22:51
*ED- Fall Risk Assessment Last Done: 03/01/25 03:07
*ED COVID-19 Vaccine History Last Done: 02/28/25 22:51
*Nursing Disposition Last Done: 03/01/25 03:07
ED-Female Genitourinary Assessment Last Done: 02/28/25 23:52
Discharge Date and Time
Discharge Date/Time: 03/01/25 03:07
Print Language: GRENADIAN
[2025-03-01 00:11] LABS: HCG, Serum Qualitative Screen Negative
[2025-03-01] MEDS: NSS 1000 IV (00:12)
[2025-03-01] MEDS: ZOFRAN 4 MG IV (00:12)
[2025-03-01] MEDS: MORPHINE SULFATE 4 MG IV (00:13)
[2025-03-01 02:25] VITALS: BP 109/67
[2025-03-01] MEDS: PERCOCET 5/325 1 TABLET PO (03:03)
== END 2025-03-01 03:07 | disposition home or self-care (01) ==
LOC: EMR 22:48
PROVIDERS: EMERGENCY PHYSICIAN Student in an Organized Health Care Education/Training Program; FAMILY PHYSICIAN Physician Assistant Medical
DX: R10.2 Pelvic and perineal pain (principal); D68.00 Von Willebrand disease, unspecified; E28.2 Polycystic ovarian syndrome
CPT/HCPCS: 99284; 96374; 96375; 96361; 76856; 80053; 83690; 84703; 85025

== ENCOUNTER 2025-10-16 12:21 | Emergency (ER) | payer OTHER, SELFPAY ==
[2025-10-16 12:22] VITALS: BP 133/86
[2025-10-16 12:43] VITALS: BP 125/72
[2025-10-16 12:58] LABS: Hematocrit 38.4 % (37.0-47.0); Hemoglobin 13.0 g/dL (12.0-16.0); Mean Corp Hgb Conc. 33.9 g/dL (33.0-37.0); Mean Corpuscular Volume 90.6 fL (81.0-99.0); Nucleated Red Blood Cells % 0 %; Platelet Count 288 10^3/uL (130-400); Red Cell Dist. Width 13.2 % (11.5-14.5)
[2025-10-16 13:00] VITALS: BP 117/73
[2025-10-16 13:04] LABS: Urine Character Clear (Clear)
--- NOTE | 2025-10-16 13:10 | ED.GENMED ---
History of Present Illness
<Angel Wood MD, Resident - Last Filed: 10/16/25 13:48>
General
Chief Complaint: Abdominal Pain
Source: patient
Time Seen by Provider: 10/16/25 12:49
History of Present Illness
History of Present Illness:
Patient is a 30-year-old female, with past medical history significant for (PCOS and von Willebrand disease and POTS disease) who presented to the ED with complaint of right upper and lower quadrant pain for the last 5 days.
She had a viral infection recently for which she was treated with steroids and antibiotics, shortly after her steroid course ended she had this pain in the right upper and lower quadrant that was exacerbated by coughing, moving and was limiting her
activity during the day. She went to urgent care who prescribed her Flexeril which she took for 5 days but it has not noted any relief and pain is getting worse.
Denies any fever, chills, burning micturition, frequency, urgency, nausea, vomiting, chest pain, dizziness or syncope.
Her last menstrual period was in July but given her PCO's she can never tell when it will come.
Past History
<Angel Wood MD, Resident - Last Filed: 10/16/25 13:48>
Past History
ED Past Medical History: Fibromyalgia (Questionable) and Other (PCOS, Von Willenbrands disease. POTS questionable, Hiatal hernia)
ED Past Surgical History: Tonsilectomy
Social History
Tobacco: Non-smoker
Alcohol: Occasional
Personal: Single
Living: with family
Employment: Employed
Review of Systems
<Angel Wood MD, Resident - Last Filed: 10/16/25 13:48>
Review of Systems
All Other Systems: ROS reviewed and negative except as documented in HPI and ROS
Phy Exam
<Angel Wood MD, Resident - Last Filed: 10/16/25 13:48>
General Physical Exam
General Presentation: well appearing and no apparent distress
General Skin: warm and dry
Cardiovascular Exam
Cardiovascular Exam: regular rate/rhythm, no edema, no murmur and normal peripheral pulses
Pulmonary Exam
Pulmonary Exam: lungs clear, no respiratory distress, no rales, no rhonchi and no wheezing
Gastrointestinal Exam
Gastrointestinal Exam: normal bowel sounds, soft, guarding and tender (Right upper and lower quadrant)
Neurological Exam
Neurological Exam: alert and oriented x3
Musculoskeletal Exam
Musculoskeletal Exam: other (Limitation of movement due to pain in right quadrant)
Course
<Angel Wood MD, Resident - Last Filed: 10/16/25 13:48>
Orders/Labs/Results
Orders:
Orders
10/16/25 12:43
Complete Blood Count/With Diff Urgent
Comprehensive Metabolic Panel Urgent
HCG, Urine Qualitative Screen Urgent
Date Specimen was Collected: 10/16/25
Time Specimen was Collected: 12:37
Comment: ADD ON
Lipase Urgent
Urinalysis Reflex To Culture Urgent
Date Specimen was Collected: 10/16/25
Time Specimen was Collected: 12:37
Urine Microscopic Reflex Cult Urgent
CR Chest - 2 Views Urgent
Comment:
Reason For Exam: cough
10/16/25 13:21
Add On- LAB Urgent
Tests Added?: HCG urine qual
10/16/25 13:39
Ketorolac [Toradol] 15 mg IV NOW STA
Abnormal Lab Results
10/16/25
12:43
Absolute Monos (auto) 0.7 H 10^3/uL
(0.1-0.6)
Urine Bacteria (Reflex) Few A
(Negative)
Urine Albumin (Reflex) 1+ A
(Neg - Trace)
10/16/25 12:43
10/16/25 12:43
Vital Signs
Initial and Last Documented VS:
Initial Vital Signs
Temp Pulse Resp BP Pulse Ox
98.1 F 75 16 133/86 100
10/16/25 12:22 10/16/25 12:22 10/16/25 12:22 10/16/25 12:22 10/16/25 12:22
Last Documented Vital Signs
Temp Pulse Resp BP Pulse Ox
98.1 F 85 19 125/72 100
10/16/25 12:22 10/16/25 12:45 10/16/25 12:45 10/16/25 12:43 10/16/25 13:17
<Eric Porter, DO - Last Filed: 10/16/25 15:26>
Orders/Labs/Results
Orders:
Orders
10/16/25 12:43
Complete Blood Count/With Diff Urgent
Comprehensive Metabolic Panel Urgent
HCG, Urine Qualitative Screen Urgent
Date Specimen was Collected: 10/16/25
Time Specimen was Collected: 12:37
Comment: ADD ON
Lipase Urgent
Urinalysis Reflex To Culture Urgent
Date Specimen was Collected: 10/16/25
Time Specimen was Collected: 12:37
Urine Microscopic Reflex Cult Urgent
CR Chest - 2 Views Urgent
Comment:
Reason For Exam: cough
10/16/25 13:21
Add On- LAB Urgent
Tests Added?: HCG urine qual
10/16/25 13:39
Ketorolac [Toradol] 15 mg IV NOW STA
Abnormal Lab Results
10/16/25
12:43
Absolute Monos (auto) 0.7 H 10^3/uL
(0.1-0.6)
Urine Bacteria (Reflex) Few A
(Negative)
Urine Albumin (Reflex) 1+ A
(Neg - Trace)
10/16/25 12:43
10/16/25 12:43
Vital Signs
Initial and Last Documented VS:
Initial Vital Signs
Temp Pulse Resp BP Pulse Ox
98.1 F 75 16 133/86 100
10/16/25 12:22 10/16/25 12:22 10/16/25 12:22 10/16/25 12:22 10/16/25 12:22
Last Documented Vital Signs
Temp Pulse Resp BP Pulse Ox
98.1 F 85 19 125/72 100
10/16/25 12:22 10/16/25 12:45 10/16/25 12:45 10/16/25 12:43 10/16/25 13:17
<Angel Wood MD, Resident - Last Filed: 10/16/25 13:48>
MDM/Problems Addressed
Differential Diagnosis Includes:
Cholecystitis
Appendicitis
Cholelithiasis
Pancreatitis
Kidney stones
UTI
Pyelonephritis
Rib fracture
Muscle sprain
Colitis
PE
MDM/Problems Addressed:
Based on the clinical assessment, denies any trauma/fall rib fracture is less likely. Heart rate stable, normal oxygen saturation, blood pressure stable, no pleurisy, less likely pulmonary embolism. Blood work looks good with no signs of infection.
No urinary issues that was suggestive of UTI, no fever or chills that would suggest a pyelonephritis.
test negative, check chest x-ray
Will give IV Toradol for pain relief
Incentive spirometry
<Angel Wood MD, Resident - Last Filed: 10/16/25 13:48>
*Pulse Oximetry
SaO2: 100
Oxygen Mode of Delivery: Room air
<Eric Porter DO - Last Filed: 10/16/25 15:26>
*Pulse Oximetry
Patient hypoxic: no
*Critical Care Note
Total Time (30-74mins, 75-104mins- exclusive of procedures): Not Applicable
Data Reviewed
Source: patient
Further Testing Considered But Not Given:
Considered CTA but no clinical concern for pulmonary embolism as no tachycardia or tachypnea
ED Attending Note
<Angel Wood MD, Resident - Last Filed: 10/16/25 13:48>
-
Portions of this chart may have been created with voice recognition software.� Occasional wrong word or��sound alike� substitutions may have occurred due to the inherent limitations of voice recognition software.
<Eric Porter, - Last Filed: 10/16/25 15:26>
ED Attending Note
Patient seen and examined by attending physician: Yes
I performed a history and physical exam of patient and discussed management with resident, I reviewed resident's note and agree with documented findings and plan of care.: Yes
ED Attending Note:
30-year-old female presents with right lateral chest wall pain has been ongoing for about a week. 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 Also worse with movement. She did fall a month ago but is
not sure if it is related. She denies feeling short of breath. No fevers. No rash. Exam: Heart regular lungs clear to auscultation. Abdomen soft nontender nondistended. Neuroexam normal. No respiratory distress. No rash noted. No vesicles.
Moderate tenderness noted to the right lateral chest wall. She does have pain with lateral compression of the rib cage as well. Her symptoms are very focal. Assessment and plan: Strongly suspect chest wall discomfort. Will recommend Tylenol as
needed with incentive spirometry and outpatient follow-up
Discharge Plan
Departure
Patient Disposition: Home (Routine Discharge)
Date of Disposition: 10/16/25
Time of Disposition: 15:17
Patient with high blood pressure during this ER visit?: No
Discharge Problem:
Acute chest wall pain
Prescriptions:
No Action
No Current Medications
0
Referrals:
Siri Ross PA [Family Provider, Family Practice]
Activity Restrictions/Additional Instructions:
USE TYLENOL NEEDED FOR PAIN
CONTINUE CONSERVATIVE MEASURES INCLUDING MASSAGE/HEAT AND ICE
INCENTIVE SPIROMETRY AT LEAST 10 TIMES AN HOUR
FOLLOW UP WITH PCP
Interventions
Interventions:
*Risk Screen - Suicide Last Done: 10/16/25 12:22
*General Assessment Last Done: 10/16/25 12:22
*Neglect/Abuse Screening Last Done: 10/16/25 12:22
*ED COVID-19 Vaccine History Last Done: 10/16/25 12:41
*ED Influenza Vaccine History Last Done: 10/16/25 12:41
WE-[id number]-[id number] Assessment Last Done: 10/16/25 12:41
Discharge Date and Time
Print Language: GEORGIAN
[2025-10-16 13:13] LABS: ALT (SGPT) 16 U/L (0-35); AST (SGOT) 18 U/L (14-36); Albumin 4.4 g/dl (3.5-5.0); Alkaline Phosphatase 53 U/L (38-126); Blood Urea Nitrogen 11 mg/dl (7-17); Calcium 9.6 mg/dl (8.4-10.2); Carbon Dioxide 27 mmol/L (22-30); Chloride 104 mmol/L (98-107); Glucose 87 mg/dl (70-99); Lipase 100 U/L (23-300); Potassium 4.0 mmol/L (3.5-5.1); Sodium 137 mmol/L (135-145); Total Protein 7.2 g/dl (6.3-8.2); eGFR > 60.00
[2025-10-16 13:20] LABS: Urine Red Blood Cell 0-2 /HPF (0-2); Urine Squamous Cell 16-20 /LPF (Few)
[2025-10-16 14:01] LABS: HCG, Urine Qualitative Screen Negative
[2025-10-16] MEDS: TORADOL 15 MG IV (14:22)
[2025-10-16 14:23] VITALS: BP 109/75
[2025-10-16 15:00] VITALS: BP 103/65
== END 2025-10-16 15:44 | disposition home or self-care (01) ==
LOC: EMR 12:21
PROVIDERS: Emergency Medicine; EMERGENCY PHYSICIAN Emergency Medicine; FAMILY PHYSICIAN Physician Assistant Medical
DX: R07.89 Other chest pain (principal); E28.2 Polycystic ovarian syndrome; D68.00 Von Willebrand disease, unspecified
CPT/HCPCS: 96374; 99284; 71046; 80053; 81003; 81015; 81025; 83690; 85025